=== PATIENT | male | born 1985 | race Caucasian/White ===

== ENCOUNTER 2020-09-27 13:26 | Emergency (ER) | payer OTHER, SELFPAY ==
[2020-09-27 13:30] VITALS: BP 133/79; PULSE 73; RESP 12; TEMP 36.7; O2SAT 100
--- NOTE | 2020-09-27 13:52 | ED.GENADULT ---
HPI - General Adult General Chief complaint: Ear Stated complaint: ear pain Source: patient Mode of arrival: ambulatory Limitations: no limitations History of Present Illness HPI narrative: Patient is a 34-year-old male who presents to urgent care via POV for evaluation of left ear pain that began 3 days ago. Additionally, patient reports he swam in the [place] a little over 1 week ago and believes this to be the cause of his symptoms. He reports his pain to be intermittent and sharp in nature. He is also experiencing intermittent dizziness. No relief with swimmer's ear drops. Unable to identify aggravating factors. Patient has a history of AOM and otitis externa and states today symptoms are identical to previous ear infections. His established violin repairer is Dr. Choe. Related Data Allergies Allergy/AdvReac Type Severity Reaction Status Date / Time No Known Allergies Allergy Verified 09/27/20 13:48 Review of Systems Review of Systems: Denies fever, chills, sweats, change in appetite, poor p.o. intake, malaise, headache, rhinorrhea, sinus problems, tinnitus, vertigo, hearing loss, muffled hearing, ear drainage, nausea, vomiting, sore throat, cough, shortness of breath, lymphadenopathy, chest pain, heart palpitations, and heart murmur. [facility] Past Medical History Medical History (Updated 09/27/20 @ 14:02 by MOLLY Bronson, ) Anxiety Social History Social History Smoking status: Current every day smoker Alcohol intake: current Comments I have reviewed and agree with the patient's past medical, surgical, social, and family hx as documented by the RN. There is no relevant family history pertinent to the presenting complaint. Exam Narrative: GENERAL: Well-appearing, well-nourished, and in no acute distress. HEAD: Normocephalic, atraumatic. No sinus tenderness or facial swelling appreciated. EYES: PERRLA and EOMI. No evidence of erythema, swelling, or drainage. ENT: Right external ear and ear canal normal. Left ear canal is with moderate erythema and mild swelling. Bilateral TMs are normal. No TM perforation. Nares clear, no rhinorrhea or epistaxis. Bilateral turbinates without erythema/ swelling. Mucous membranes moist and pink. Uvula is midline without erythema and swelling. No evidence of petechial rash, cobblestoning, lesions, ulcers, erythema, swelling, exudates, peritonsillar abscess, tenting, or drooling. Breath odor and voice normal. NECK: Supple. No Lymphadenopathy or nuchal rigidity appreciated. CHEST: Bilateral lung martinez are clear to auscultation. No respiratory distress. No evidence of cough or pleuritic cp upon examination. HEART: Regular rate and rhythm. No murmur, gallop, or rub heard. EXTREMITIES: Normal range of motion. No edema. SKIN: Warm, dry, no rash. NEURO: No focal deficits. Alert and oriented x3. Course Vital Signs Vital signs: Vital Signs Temperature 98.0 F 09/27/20 13:30 Pulse Rate 73 09/27/20 13:30 Respiratory Rate 12 09/27/20 13:30 Blood Pressure 133/79 09/27/20 13:30 Pulse Oximetry 100 09/27/20 13:30 Temperature 98.0 F 09/27/20 13:30 Pulse Rate 73 09/27/20 13:30 Respiratory Rate 12 09/27/20 13:30 Blood Pressure 133/79 09/27/20 13:30 Pulse Oximetry 100 09/27/20 13:30 Due to an elevated blood pressure, I had a detailed discussion with the patient and/or guardian regarding the need for follow-up with their primary care provider within the next 3-4 days. Patient verbalized understanding and agreed. Medical Decision Making Differential Diagnosis Differential Diagnosis: Otitis externa, barotrauma, eustachian tube dysfunction, AOM, OME, herpes zoster infection, acute mastoiditis, malignancy Medical Records Medical records reviewed: Yes I reviewed the external patient's medical records. Vital Signs Vital Signs: Vital Signs Temperature 98.0 F 09/27/20 13:30
== END 2020-09-27 14:09 | disposition home or self-care (01) ==
PROVIDERS: Emergency Provider Nurse Practitioner Family; PCP Family Medicine
DX: H60.502 Unspecified acute noninfective otitis externa, left ear (principal); F41.9 Anxiety disorder, unspecified
CPT/HCPCS: 99213; G0463

== ENCOUNTER 2022-02-23 09:58 | Outpatient (NON) | payer OTHER, SELFPAY | END 2022-02-23 09:59 | disposition home or self-care (01) | PROVIDERS: PCP Family Medicine; Visit Provider Family Medicine | DX: D48.5 Neoplasm of uncertain behavior of skin (principal) | CPT/HCPCS: 88305 ==